=== PATIENT | male | born 1965 | race Caucasian/White ===

== ENCOUNTER 2020-05-24 15:35 | Emergency (ER) | payer BC, OTHER ==
[~2020-05-24 15:35] MED LIST: Iopamidol 370 76% 100 ML VIAL ONE
--- NOTE | 2020-05-24 16:40 | RAD ---
Exam: Chest one view HISTORY:Chest one view Comparison: 03/10/2010 FINDINGS: Cardiac silhouette: Normal Aorta: Atherosclerosis Pulmonary vessels: Normal Costophrenic angles: Clear LUNGS: Chronic lung parenchymal changes. Possible right lower lobe infiltrate with partial obscuratio n of the right hemidiaphragm. Pneumothorax: None Osseous abnormalities: Remote injury to the left clavicle. IMPRESSION: Possible right lower lobe infiltrate.
[2020-05-24 16:46] LABS: CK (CPK) 578 U/L (30-200); CRP (Inflammatory) Less than 0.50 mg/dL (= or < 0.5)
[2020-05-24 16:48] LABS: ALT (SGPT) 16 U/L (8-55); AST (SGOT) 25 U/L (5-34); Albumin 4.3 g/dL (3.5-5.0); Alkaline Phosphatase 55 U/L (40-110); Anion Gap 15 mmol/L (10-20); BUN (Urea Nitrogen) 9 mg/dL (8.4-25.7); Bilirubin, Total 0.5 mg/dL (0.2-1.2); Calc. Creatinine Clearance 0 mL/min (70-130); Calcium 8.8 mg/dL (7.8-10.44); Carbon Dioxide 26 mmol/L (22-29); Chloride 100 mmol/L (98-107); Estimated GFR-MDRD 44; Globulin 2.5 g/dL (2.4-3.5); Glucose 120 mg/dL (70-105); Potassium 3.4 mmol/L (3.5-5.1); Protein, Total 6.8 g/dL (6.0-8.3); Sodium 138 mmol/L (136-145)
[2020-05-24 17:31] LABS: Hemoglobin 13.6 g/dL (14.0-18.0); Mean Corpuscular HGB CONC 33.1 g/dL (32.0-36.0); Mean Corpuscular Hemoglobin 32.9 pg (27.0-31.0); Mean Corpuscular Volume 99.4 fL (78.0-98.0); Platelet Count 203 thou/uL (130-400); RBC Distribution Width 13.1 % (11.5-14.5); Red Blood Cell (RBC) Count 4.13 mill/uL (4.70-6.10); White Blood Cell (WBC) Count 5.5 thou/uL (4.8-10.8)
[2020-05-24 17:32] LABS: Base Excess-Venous 4.3 mmol/L (-2.0 to 3.0); Bicarbonate (HCO3v) 31.8 mmol/L (22.0-28.0); CO2 Tension (PvCO2) 58.7 mmHg (40.0-50.0); Calcium, Ionized 1.13 mmol/L (See Comments:); Chloride 102 mmol/L (98-107); Hemoglobin - Calc 14.1 g/dL (14.0-18.0); Potassium 3.4 mmol/L (3.5-5.1); Sodium 144 mmol/L (138-145); T. Carbon Dioxide 33.6 mmol/L (22.0-28.0); vO2 Saturation-calc 77.4 % (60.0-85.0)
[2020-05-24 17:32] LABS: Band 2 % (5-11); Eosinophils 1 % (0-10); Lymphocytes 17 % (21-51); MDiff Complete? YES; Monocytes 3 % (0-10); Platelet Morphology Comment Appears Adequate; Reactive Lymphocytes 19 % (0-10)
--- NOTE | 2020-05-24 18:17 | CT ---
CT CHEST WITH CONTRAST: Indications: Chest pain. FINDINGS: The mediastinum shows opacification of the pulmonary arteries and thoracic aorta. There is no evidenc e of proximal pulmonary embolus to the segmental level as the pulmonary arteries are well opacified. The thoracic aorta is unremarkable with no evidence of dissection. There is a moderate sized pericardial effusion. No evidence of adenopathy. The lung samayoa are clear. There is no evidence of infiltrate or effusion. There is linear atelectasi s in the lung bases. Images through the upper abdomen are unremarkable. Review of the osseous structures show mild anterior wedging of a mid-thoracic vertebrae with mild los s of anterior height in the 10% range. The other vertebrae are normally maintained. No lytic or blast ic process identified. IMPRESSION: 1. Moderate sized pericardial effusion. Recommend cardiology consultation. 2. No acute lung process. 3. No evidence of proximal pulmonary embolus to the segmental level. 4. Mild anterior wedge compression of a mid-thoracic vertebrae, probably T5. POS: AGW
[2020-05-24 18:31] LABS: Bilirubin Negative (Negative); Blood, Urine Negative (Negative); Clarity Clear (Clear); Glucose, Urine (Dipstick) Negative (Negative); Ketone, Urine Negative (Negative); Leukocyte Negative (Negative); Nitrite Negative (Negative); Protein, Urine (Dipstick) Negative (Neg-Trace); Urobilinogen 0.2 mg/dL (Less than 2); pH, Urine 5.5 (5.0-9.0)
== END 2020-05-24 19:05 | disposition short-term general hospital (02) ==
LOC: MADERS 15:35
DX: I31.3 Pericardial effusion (noninflammatory) (principal); J44.9 Chronic obstructive pulmonary disease, unspecified; E03.9 Hypothyroidism, unspecified; I25.2 Old myocardial infarction; E78.00 Pure hypercholesterolemia, unspecified; E78.5 Hyperlipidemia, unspecified; F17.210 Nicotine dependence, cigarettes, uncomplicated; Z79.899 Other long term (current) drug therapy; Z79.82 Long term (current) use of aspirin
CPT/HCPCS: 71045; 71260; 80053; 81003; 82330; 82550; 82803; 83880; 84443; 84484; 85025; 85379; 86140; 93005; 96360; J7620; Q9967

== ENCOUNTER 2021-04-12 21:10 | Emergency (ER) | payer BC ==
[~2021-04-12 21:10] MED LIST changes: -Iopamidol 370 76% 100 ML VIAL ONE; +Iopamidol 370 76% 125 ML VIAL FS ONE; +Sodium Chloride 0.9% 100 ML BAG ONE
[2021-04-12] MEDS ORDERED: methylPREDNISolone Sod Succ/PF 125 MG/2 ML VIAL ONE (21:44)
[2021-04-12 22:02] LABS: #Basophils 0.1 thou/uL (0.0-0.2); #Eosinphils 0.1 thou/uL (0.0-0.7); #Lymphocytes 1.3 thou/uL (1.20-3.40); #Monocytes 0.4 thou/uL (0.11-0.59); #Neutrophils 1.8 thou/uL (1.40-6.50); %Basophils 1.9 % (0.0-1.0); %Eosinophils 2.6 % (0.0-10.0); %Monocytes 9.7 % (0.0-10.0); %Neutrophils 50.7 % (42.0-75.0); Hemoglobin 11.2 g/dL (14.0-18.0); Mean Corpuscular HGB CONC 33.4 g/dL (32.0-36.0); Mean Platelet Volume 5.6 fL (7.4-10.4); Platelet Count 209 thou/uL (130-400); Platelet Morphology Comment Appears Adequate; RBC Distribution Width 11.4 % (11.5-14.5); RBC Morphology Normal; Red Blood Cell (RBC) Count 3.28 mill/uL (4.70-6.10); White Blood Cell (WBC) Count 3.6 thou/uL (4.8-10.8)
[2021-04-12 22:11] LABS: ALT (SGPT) 16 U/L (8-55); AST (SGOT) 21 U/L (5-34); Albumin 4.1 g/dL (3.5-5.0); Alkaline Phosphatase 52 U/L (40-110); Anion Gap 14 mmol/L (10-20); BUN (Urea Nitrogen) 11 mg/dL (8.4-25.7); Bilirubin, Total 0.3 mg/dL (0.2-1.2); CK (CPK) 311 U/L (30-200); Calc. Creatinine Clearance 0 mL/min (70-130); Calcium 9.2 mg/dL (7.8-10.44); Carbon Dioxide 29 mmol/L (22-29); Chloride 99 mmol/L (98-107); Glucose 107 mg/dL (70-105); Potassium 3.3 mmol/L (3.5-5.1); Protein, Total 7.1 g/dL (6.0-8.3); Sodium 139 mmol/L (136-145)
[2021-04-12 22:15] LABS: CKMB 1.6 ng/mL (0-6.6)
[2021-04-12 22:18] LABS: Bilirubin Negative (Negative); Blood, Urine Negative (Negative); Clarity Clear (Clear); Glucose, Urine (Dipstick) Negative (Negative); Ketone, Urine Negative (Negative); Leukocyte Negative (Negative); Nitrite Negative (Negative); Protein, Urine (Dipstick) Negative (Neg-Trace); Specific Gravity, Urine 1.015 (1.005-1.030); Urobilinogen 0.2 mg/dL (Less than 2); pH, Urine 6.5 (5.0-9.0)
[2021-04-12 22:27] LABS: Amphetamine Not Detected (NotDetected); Cocaine Metabolite Screen Not Detected (NotDetected); Methamphetamine Not Detected (NotDetected); Opiate Screen Not Detected (NotDetected); Phencyclidine (PCP) Not Detected (NotDetected); THC/Cannabinoid Screen Not Detected (NotDetected)
[2021-04-12 22:28] LABS: Barbiturates Screen Not Detected (NotDetected); Benzodiazepine Screen Not Detected (NotDetected); Medtox Control Line Valid? VALID (VALID); Methadone Not Detected (NotDetected); Oxycodone Screen Not Detected (NotDetected); Tricyclic Screen Not Detected (NotDetected)
[2021-04-13] MEDS ORDERED: methylPREDNISolone Sod Succ/PF 125 MG/2 ML VIAL ONE (08:45)
[2021-04-13] MEDS ORDERED: Furosemide 20 MG/2 ML VIAL ONE (13:33)
== END 2021-04-13 20:17 | disposition short-term general hospital (02) ==
LOC: MADERS 21:10
DX: J44.1 Chronic obstructive pulmonary disease with (acute) exacerbation (principal); D72.819 Decreased white blood cell count, unspecified; B20 Human immunodeficiency virus [HIV] disease; E03.9 Hypothyroidism, unspecified; F17.210 Nicotine dependence, cigarettes, uncomplicated; I25.2 Old myocardial infarction; E78.5 Hyperlipidemia, unspecified; E78.00 Pure hypercholesterolemia, unspecified; Z79.899 Other long term (current) drug therapy
CPT/HCPCS: 71045; 71275; 80053; 80306; 81003; 82550; 82553; 83605; 83880; 84443; 84484; 85025; 85379; 87040; 93005; 94760; 96374; 96375; 96376; J1940; J2930; J3490; J7620; Q9967